=== PATIENT | female | born 1950 | race Caucasian/White ===

== ENCOUNTER 2019-05-29 15:14 | Inpatient (IN) | payer MEDICARE, OTHER ==
[~2019-05-29] VITALS: Ht 152.4 cm; Wt 56.2 kg
--- NOTE | 2019-05-29 15:15 | NUR ---
PT BIBRA FROM HOME C/O WITNESSED SYNCOPAL EPISODE, PT AAOX3, NOT IN RESPIRATORY DISTRESS, HOOKED TO MONITOR, KEPT RESTED AND COMFORTABLE, WILL CONTINUE TO MONITOR.
--- NOTE | 2019-05-29 15:20 | NUR ---
AT BEDSIDE FOR EVAL.
[2019-05-29] MEDS ORDERED: IV NS 0.9% 1,000 ML BAG IV ONE ×4 (15:30→18:00)
[2019-05-29] MEDS ORDERED: MORPHINE SULFATE INJ 2 MG/ML DISP.SYRIN IV ONE (15:30)
[2019-05-29] MEDS ORDERED: ONDANSETRON HCL/PF 4 MG/2 ML VIAL IVP ONE (15:30)
[2019-05-29] MEDS ORDERED: ONDANSETRON HCL/PF 4 MG/2 ML VIAL ONE (15:33)
--- NOTE | 2019-05-29 15:44 | NUR ---
BLOOD DRAWN AND SENT TO LAB.
[2019-05-29 15:58] LABS: BASOPHILS % (AUTO) 0.1 % (0.0-2.0); HEMATOCRIT 50 % (33-45); HEMOGLOBIN 16.5 g/dL (11.5-14.8); LYMPHOCYTES # (AUTO) 0.7 /CMM (0.8-4.8); LYMPHOCYTES % (AUTO) 2.8 % (20.0-44.0); MEAN CORPUSCULAR HGB CONC 33 g/dl (31.0-36.0); MEAN CORPUSCULAR VOLUME 95 fL (82-100); MONOCYTES # (AUTO) 1.9 /CMM (0.1-1.30); MONOCYTES % (AUTO) 8.4 % (2.0-12.0); NEUTROPHILS # (AUTO) 20.4 /CMM (1.8-8.9); NEUTROPHILS % (AUTO) 88.7 % (43.0-81.0); PLATELET COUNT (AUTO) 235 /CMM (150-450); RED BLOOD CELL COUNT(AUTO) 5.29 MIL/uL (4.0-5.2)
--- NOTE | 2019-05-29 16:16 | NUR ---
wheeled patient to ct scan
--- NOTE | 2019-05-29 16:16 | NUR ---
URINE COLLECTED AND SENT TO LAB
--- NOTE | 2019-05-29 16:16 | NUR ---
PATIENT GIVEN BED BATH
--- NOTE | 2019-05-29 16:16 | NUR ---
PT TAKEN TO CT
[2019-05-29] MEDS ORDERED: ATEN25TA PO (16:22)
[2019-05-29] MEDS ORDERED: IPRA42SP BNOSTRILS (16:22)
[2019-05-29] MEDS ORDERED: RANI150T8 PO (16:22)
[2019-05-29] MEDS ORDERED: LUBI24CA5 PO (16:22)
[2019-05-29] MEDS ORDERED: SUMA100T16 PO (16:22)
[2019-05-29] MEDS ORDERED: IMIP10TA PO (16:22)
[2019-05-29] MEDS ORDERED: MYRBETRIQ PO (16:22)
[2019-05-29] MEDS ORDERED: NAPR-1009 PO (16:22)
[2019-05-29] MEDS ORDERED: ROSU40TA23 PO (16:22)
[2019-05-29] MEDS ORDERED: LEVO75TA7 PO (16:22)
[2019-05-29] MEDS ORDERED: ESTR1TAB28 PO (16:22)
[2019-05-29] MEDS ORDERED: FESO4TAB PO (16:22)
[2019-05-29] MEDS ORDERED: ONDA-97 PO (16:22)
[2019-05-29 16:24] LABS: APPEARANCE,URINE Slightly Cloudy (CLEAR); BILIRUBIN,URINE SMALL (NEGATIVE); BLOOD, URINE Negative Ery/uL (NEGATIVE); COLOR,URINE Amber (YELLOW); KETONES,URINE 15 (NEGATIVE); LEUKOCYTE ESTERASE ,URINE Negative (NEGATIVE); NITRITE, URINE Negative (NEGATIVE); PROTEIN,URINE Negative (NEGATIVE); UGLUCOSE Negative (NEGATIVE)
[2019-05-29] MEDS ORDERED: BETA30LO2 TD (16:27)
[2019-05-29] MEDS ORDERED: PIPERACILLIN /TAZOBACTAM 3.375 G in IV D5W 50 ML IV ONE (16:30)
[2019-05-29 16:40] LABS: BACTERIA,URINE Moderate /HPF (None Seen); RBC,URINE 0-2 /HPF (0-2); SQUAMOUS EPITHELIAL CELL,UR Many /HPF (None Seen); WBC,URINE 0-2 /HPF (0-3)
[2019-05-29 17:15] LABS: BAND % (MANUAL) 23 % (0.0-5.0); LYMPHOCYTES % (MANUAL) 8 % (16-48); NEUTROPHILS % (MANUAL) 69 (42-76)
--- NOTE | 2019-05-29 17:16 | NUR ---
CALLED [facility], SARAHD PÉREZ
[2019-05-29 17:25] LABS: ALBUMIN 2.6 g/dL (3.4-5.0); BILIRUBIN,DIRECT 0.2 mg/dL (0.0-0.2); BILIRUBIN,TOTAL 0.8 mg/dL (0.2-1.0); CALCIUM, SERUM 10.1 mg/dL (8.5-10.1); CREATININE 1.4 mg/dL (0.6-1.3); POTASSIUM 3.3 mmol/L (3.5-5.1); TOTAL PROTEIN, SERUM 5.9 g/dL (6.4-8.2)
[2019-05-29] MEDS ORDERED: POTASSIUM CL. PREMIX PERIPHER. 200 ML ONE (17:33)
[2019-05-29] MEDS: POTASSIUM CL. PREMIX PERIPHER. 50 ML IV SCH ×4 (17:38→21:36)
--- NOTE | 2019-05-29 17:45 | NUR ---
REPORT GIVEN TO CLARISSA BIRMINGHAM FOR AN, WITH ONGOING IVF AND POTASSIUM.
[2019-05-29] MEDS ORDERED: PIPERACILLIN /TAZOBACTAM 4.5 G in IV D5W 100 ML IV SCH (18:00)
[2019-05-29] MEDS ORDERED: ONDANSETRON HCL/PF 4 MG/2 ML VIAL IVP PRN (18:00)
--- NOTE | 2019-05-29 18:27 | NUR ---
AT BEDSIDE FOR EVAL.
[2019-05-29 20:00] VITALS: BP 127/74
[2019-05-29] MEDS: MORPHINE SULFATE INJ 2 MG/ML DISP.SYRIN IV PRN (20:12)
--- NOTE | 2019-05-29 20:22 | NUR ---
CENTRIFUGE SEPARATOR OPERATOR NOTES RECEIVED PATIENT AWAKE IN BED WITH NO DISTRESS NOTED. CALL LIGHT WITHIN REACH. WITH C/O OF 10/10 RIGHT RIB AND HEAD PAIN, PRN MORPHINE GIVEN, WILL CONTINUE TO MONITOR FOR EFFECTIVENESS. PERIPHERAL LINE INTACT AND PATENT. ENCOURAGED USE OF CALL LIGHT FOR ASSISTANCE AND VERBALIZED GOOD UNDERSTANDING. BED IN LOW LOCK SETTING WITH BED ALARM ON AND FUNCTIONING PROPERLY. ROOM FREE OF CLUTTER AND BELONGINGS KEPT NEAR BEDSIDE. WILL CONTINUE TO MONITOR.
[2019-05-29 22:23] LABS: ALBUMIN 2.7 g/dL (3.4-5.0); BILIRUBIN,DIRECT 0.4 mg/dL (0.0-0.2); BILIRUBIN,TOTAL 1.2 mg/dL (0.2-1.0); CALCIUM, SERUM 8.9 mg/dL (8.5-10.1); CREATININE 1.2 mg/dL (0.6-1.3); POTASSIUM 4.3 mmol/L (3.5-5.1)
[2019-05-29] MEDS: PIPERACILLIN /TAZOBACTAM 3.375 G in IV D5W 100 ML IV SCH ×2 (22:32→23:37)
[2019-05-29] MEDS: IV NS 0.9% 1,000 ML IV PRN (23:37)
[2019-05-30] VITALS: BP 120/64
[2019-05-30] MEDS: MORPHINE SULFATE INJ 2 MG/ML DISP.SYRIN IV PRN ×3 (00:12→20:49)
[2019-05-30 06:25] LABS: BASOPHILS % (AUTO) 0.1 % (0.0-2.0); HEMATOCRIT 39 % (33-45); HEMOGLOBIN 12.8 g/dL (11.5-14.8); LYMPHOCYTES # (AUTO) 1.7 /CMM (0.8-4.8); LYMPHOCYTES % (AUTO) 8.2 % (20.0-44.0); MEAN CORPUSCULAR HGB CONC 33 g/dl (31.0-36.0); MEAN CORPUSCULAR VOLUME 95 fL (82-100); MONOCYTES # (AUTO) 1.8 /CMM (0.1-1.30); MONOCYTES % (AUTO) 8.4 % (2.0-12.0); NEUTROPHILS # (AUTO) 17.3 /CMM (1.8-8.9); NEUTROPHILS % (AUTO) 83.3 % (43.0-81.0); PLATELET COUNT (AUTO) 144 /CMM (150-450); RED BLOOD CELL COUNT(AUTO) 4.08 MIL/uL (4.0-5.2); WHITE BLOOD COUNT (AUTO) 20.8 K/uL (4.3-11.0)
[2019-05-30 06:40] LABS: ALBUMIN 2.3 g/dL (3.4-5.0); BILIRUBIN,TOTAL 1.1 mg/dL (0.2-1.0); CALCIUM, SERUM 8.3 mg/dL (8.5-10.1); POTASSIUM 4.8 mmol/L (3.5-5.1); TOTAL PROTEIN, SERUM 5.4 g/dL (6.4-8.2)
--- NOTE | 2019-05-30 06:46 | NUR ---
SOIL BIOLOGY TEACHER NOTES PATIENT ASLEEP IN BED WITH NO DISTRESS NOTED. CALL LIGHT WITHIN REACH. NO FURTHER C/O PAIN OR DISCOMFORT. ALL DUE MEDS GIVEN ORDERED WITH NO ASE NOTED. PERIPHERAL LINE INTACT AND PATENT. BED IN LOW LOCK SETTING. BED ALARM ON AND FUNCTIONING PROPERLY. ALL BELONGINGS KEPT NEAR BEDSIDE. WILL ENDORSE TO ONCOMING SHIFT. Addendum: 05/30/19 at 0650 by YASMANY GARRIDO RN CONTACT ISOLATION OBSERVED AND MAINTAINED AT ALL TIMES
[2019-05-30 08:00] VITALS: BP 115/62
[2019-05-30] MEDS ORDERED: SUMATRIPTAN SUCCINATE 100 MG TABLET PO PRN (08:30)
--- NOTE | 2019-05-30 08:40 | NUR ---
MS RN NOTES-- PT SEEN AND EXAMINED BY DR. ORTEZ W/ ORDERS FOR XRAY TO RIGHT RIBS AND LIDOCAINE PATCH PER PT REQUEST D/T RIGHT SIDED PAIN. ORDERS READ BACK AND VERIFIED, NOTED AND CARRIED OUT.
[2019-05-30] MEDS: IPRATROPIUM BROMIDE 0.06% 15 ML NASPR NS SCH ×2 (09:00→16:49)
[2019-05-30] MEDS ORDERED: PANTOPRAZOLE 40 MG VIAL IV SCH (09:00)
[2019-05-30] MEDS: ATORVASTATIN 40 MG TABLET PO SCH (09:32)
[2019-05-30] MEDS: ATENOLOL 25 MG TABLET PO SCH (09:33)
[2019-05-30] MEDS: LIDOCAINE 5% (PATCH) 1 EA PATCH TP SCH (09:33)
[2019-05-30] MEDS: LEVOTHYROXINE SODIUM 75 MCG TABLET PO SCH (09:34)
[2019-05-30] MEDS: ESTRADIOL 1 MG TABLET PO SCH (11:18)
--- NOTE | 2019-05-30 11:18 | NUR ---
MS RN NOTES-- SON TITI AND DTR IN LAW AT BEDSIDE. PER SON, TO GIVE PT ORGANIC FOOD. PER DIETARY, THEY DONT HAVE ORGANIC FOOD. SON TITI MADE AWARE THAT HE IS WELCOME TO BRING ORGANIC FOOD FOR PT JUST LONG IT COMPLIES WITH DIET ORDER, CLEAR LIQUIDS.
--- NOTE | 2019-05-30 11:51 | NUR ---
MS RN NOTES-- WAITING FOR PHARMACY TO BRING UP NASAL SPRAY. PT STATED SHE HAS HER OWN NASAL SPRAY IN HER BAG BUT NOT TOO MUCH. PER PT, ILL JUST USE MINE FOR NOW.
[2019-05-30] MEDS: PIPERACILLIN /TAZOBACTAM 3.375 G in IV D5W 100 ML IV SCH (13:38)
[2019-05-30 16:00] VITALS: BP 117/68
--- NOTE | 2019-05-30 17:36 | NUR ---
MS RN NOTES-- NOTIFIED ROSITA SOLER ID RE: XRAY TO RIGHT RIBS.
[2019-05-30] MEDS ORDERED: IMIPRAMINE 10 MG TABLET PO SCH (18:00)
--- NOTE | 2019-05-30 18:25 | NUR ---
MS RN END OF SHIFT SUMMARY PT IS A/O X4, AFEBRILE. RESPIRATIONS ARE EVEN AND UNLABORED, NOT IN ANY ACUTE DISTRESS NOTED. PT DENIES ANY SOB, N/V. PT WAS ABLE TO SIT AT THE EDGE OF BED, STAND AND PIVOT TO USE BSC. PT ABLE TO VOID, NO STOOL DURING SHIFT. STILL ON STOOL COLLECTION FOR CDIFF. LIDOCAINE PATCH TO RIGHT RIB CAGE, XR SHOWS COMMINUTED FX W/ MD AWARE. SON TITI AND DTR IN LAW AT BEDSIDE. SON TITI BROUGHT OWN FOOD FOR PT DIETARY DOES NOT HAVE ORGANIC FOODS. NEW PERIPHERAL TO RFA G22, KEPT CLEAN AND DRY. PT TOLERATED WELL. IV FLUIDS RUNNING AT 125ML/HR. INSTRUCTED PT TO USE CALL LIGHT WHEN ASSISTANCE IS NEEDED, CALL LIGHT IS LEFT WITHIN REACH. WILL CONTINUE TO MONITOR AND ENDORSE TO YARDER FOR CONTINUITY OF CARE.
--- NOTE | 2019-05-30 19:05 | NUR ---
MS RN NOTE RECEIVED PT IN STABLE CONDITION A/O X4, CURRENTLY ON THE PHONE. NO SIGNS OF SOB OR DISTRESS, NO C/O PAIN OR N/V. IV IN RFA #[address] WITH IV FLUIDS INFUSING. ALL CURRENT NEEDS ATTENDED TO. BED LOW, LOCKED, UPPER RAILS UP , AND CALL LIGHT WITHIN REACH. WILL CONT. TO MONITOR.
[2019-05-30 20:00] VITALS: BP 146/92
[2019-05-30] MEDS: METRONIDAZOLE 500 MG TABLET PO SCH (20:08)
[2019-05-30] MEDS: CEFTRIAXONE 1 G in IV D5W 50 ML IV SCH (20:08)
--- NOTE | 2019-05-30 21:58 | NUR ---
MS RN NOTE ATTEMPTED TO TAKE WEEKLY PHOTO DOCUMENTATION OF PT BACK. PT REFUSING TO TURN TO SIDE, STATING IT HURTS TOO MUCH. RISKS AND BENEFITS MADE AWARE. WILL CONT. TO MONITOR.
[2019-05-30] MEDS: IV NS 0.9% 1,000 ML IV PRN (22:02)
[2019-05-31] MEDS: METRONIDAZOLE 500 MG TABLET PO SCH ×3 (05:02→21:34)
[2019-05-31] MEDS: IV NS 0.9% 1,000 ML IV PRN ×2 (06:09→17:05)
--- NOTE | 2019-05-31 06:22 | NUR ---
MS RN NOTE PT REMAINS IN STABLE CONDITION A/O X4, CURRENTLY RESTING IN BED. NO SIGNS OF SOB OR DISTRESS, NO C/O PAIN OR N/V. IV IN RFA #[address] WITH IV FLUIDS INFUSING, TOLERATING WELL. ALL CURRENT NEEDS ATTENDED TO. BED LOW, LOCKED, UPPER RAILS UP , AND CALL LIGHT WITHIN REACH. WILL CONT. TO MONITOR AND ENDORSE TO NEXT SHIFT FOR AN.
[2019-05-31 07:00] LABS: BASOPHILS % (AUTO) 0.2 % (0.0-2.0); EOSINOPHILS % (AUTO) 0.2 % (0.0-6.0); HEMATOCRIT 34 % (33-45); HEMOGLOBIN 11.5 g/dL (11.5-14.8); LYMPHOCYTES # (AUTO) 1.7 /CMM (0.8-4.8); LYMPHOCYTES % (AUTO) 12.3 % (20.0-44.0); MEAN CORPUSCULAR HGB CONC 34 g/dl (31.0-36.0); MEAN CORPUSCULAR VOLUME 94 fL (82-100); MONOCYTES # (AUTO) 0.8 /CMM (0.1-1.30); MONOCYTES % (AUTO) 5.9 % (2.0-12.0); NEUTROPHILS # (AUTO) 11.6 /CMM (1.8-8.9); NEUTROPHILS % (AUTO) 81.4 % (43.0-81.0); PLATELET COUNT (AUTO) 133 /CMM (150-450); RED BLOOD CELL COUNT(AUTO) 3.66 MIL/uL (4.0-5.2); WHITE BLOOD COUNT (AUTO) 14.2 K/uL (4.3-11.0)
[2019-05-31 07:17] LABS: ALBUMIN 2.2 g/dL (3.4-5.0); BILIRUBIN,DIRECT 0.2 mg/dL (0.0-0.2); BILIRUBIN,TOTAL 0.7 mg/dL (0.2-1.0); TOTAL PROTEIN, SERUM 5.5 g/dL (6.4-8.2)
--- NOTE | 2019-05-31 07:38 | NUR ---
MS RN NOTES PATIENT RECEIVED RESTING INSIDE ROOM. AWAKE, ALERT AND ORIENTED X 4. NO ACUTE DISTRESS. PATIENT DENIES ANY PAIN OR DISCOMFORT AT THIS TIME. AWAITING BM FOR STOOL COLLECTION TO R/O C-DIFF PER SHIFT CHANGE REPORT. PATIENT VERBALIZED SHE HAS NOT HAD ANY BM SINCE ARRIVING AT THE HOSPITAL. WILL CONTINUE TO MONITOR. BED LOCKED AND IN LOW POSITION. BILATERAL UPPER SIDE RAILS UP AND LOCKED. CALL LIGHT WITHIN EASY REACH
[2019-05-31 08:00] VITALS: BP 140/69
[2019-05-31] MEDS: ATENOLOL 25 MG TABLET PO SCH (08:34)
[2019-05-31] MEDS: ESTRADIOL 1 MG TABLET PO SCH (08:34)
[2019-05-31] MEDS: LEVOTHYROXINE SODIUM 75 MCG TABLET PO SCH (08:34)
[2019-05-31] MEDS: ATORVASTATIN 40 MG TABLET PO SCH (08:34)
[2019-05-31] MEDS: IPRATROPIUM BROMIDE 0.06% 15 ML NASPR NS SCH ×2 (08:35→17:07)
[2019-05-31] MEDS: LIDOCAINE 5% (PATCH) 1 EA PATCH TP SCH (08:35)
--- NOTE | 2019-05-31 09:54 | NUR ---
WOUND CARE CONSULT: PT PRESENTS WITH INTACT SKIN AND SOME DISCOLORATION TO KNEES, PRESENT ON ADMISSION. RECOMMENDATIONS MADE FOR SKIN PROTECTION. PT IS INDEPENDENT WITH BED MOBILITY. WILL SEE PRN.
[2019-05-31] MEDS ORDERED: Z GUARD REMEDY 2 OZ OINT TP PRN (10:00)
[2019-05-31] MEDS: Z GUARD REMEDY 2 OZ OINT TP SCH (10:26)
[2019-05-31 16:00] VITALS: BP 138/70
--- NOTE | 2019-05-31 18:57 | NUR ---
MS RN NOTES PATIENT RESTING INSIDE ROOM. AWAKE, ALERT AND ORIENTED, NO ACUTE DISTRESS. PATIENT KEPT CLEAN, DRY AND COMFORTABLE. SAFETY PRECAUTIONS IN PLACE. WILL ENDORSE TO INCOMING SHIFT FOR AN. BED LOCKED AND IN LOW POSITION. BILATERAL UPPER SIDE RAILS UP AND LOCKED. CALL LIGHT WITHIN EASY REACH
--- NOTE | 2019-05-31 19:05 | NUR ---
MS RN NOTES RECEIVED PT IN BED AWAKE AND ABLE TO MAKE NEEDS KNOWN. PT A/O X3. RESPIRATIONS EVEN AND UNLABORED WITH NO S/S OF ACUTE DISTRESS OR SOB NOTED. NO COMPLAINTS OF PAIN AT THIS TIME. SAFETY MEASURES IN PLACE WITH BED IN LOWEST LOCKED POSITION WITH SIDE RAILS UP X2. CALL LIGHT WITHIN REACH. WILL CONTINUE TO MONITOR.
[2019-05-31 20:16] VITALS: BP 153/76
[2019-05-31] MEDS: CEFTRIAXONE 1 G in IV D5W 50 ML IV SCH (20:46)
[2019-06-01] MEDS: IV NS 0.9% 1,000 ML IV PRN (02:19)
[2019-06-01] MEDS: METRONIDAZOLE 500 MG TABLET PO SCH (04:04)
--- NOTE | 2019-06-01 07:28 | NUR ---
MS RN NOTES PT IN BED AWAKE AND ABLE TO MAKE NEEDS KNOWN. PT A/O X3. RESPIRATIONS EVEN AND UNLABORED WITH NO S/S OF ACUTE DISTRESS OR SOB NOTED THROUGHOUT SHIFT. NO COMPLAINTS OF PAIN AT THIS TIME. SAFETY MEASURES IN PLACE WITH BED IN LOWEST LOCKED POSITION WITH SIDE RAILS UP X2. PT KEPT CLEAN, DRY, AND COMFORTABLE. CALL LIGHT WITHIN REACH. WILL CONTINUE TO MONITOR. Addendum: 06/01/19 at 6153 by PHILOMENA ANDERS RN WILL ENDORSE TO ONCOMING NURSE FOR [facility].
--- NOTE | 2019-06-01 07:49 | NUR ---
MS RN NOTES PATIENT RECEIVED RESTING INSIDE ROOM. AWAKE, ALERT AND ORIENTED X 4. VERBALLY RESPONSIVE AND RESPONDS TO VERBAL AND TACTILE STIMULI. BREATHING EVEN AND UNLABORED. NO ACUTE DISTRESS NOTED AT THIS TIME. PATIENT CALM AND RELAXED. IVF INFUSING ORDERED. SAFETY PRECAUTIONS IN PLACE. WILL CONTINUE TO MONITOR. BED LOCKED AND IN LOW POSITION, BILATERAL UPPER SIDE RAILS UP AND LOCKED. CALL LIGHT WITHIN EASY REACH
[2019-06-01 08:00] VITALS: BP 149/76
[2019-06-01] MEDS: LIDOCAINE 5% (PATCH) 1 EA PATCH TP SCH (08:51)
[2019-06-01] MEDS: Z GUARD REMEDY 2 OZ OINT TP SCH (08:51)
[2019-06-01 08:52] VITALS: BP 149/85
[2019-06-01] MEDS: LEVOTHYROXINE SODIUM 75 MCG TABLET PO SCH (08:52)
[2019-06-01] MEDS: ESTRADIOL 1 MG TABLET PO SCH (08:52)
[2019-06-01] MEDS: ATENOLOL 25 MG TABLET PO SCH (08:52)
[2019-06-01] MEDS: ATORVASTATIN 40 MG TABLET PO SCH (08:52)
[2019-06-01] MEDS: IPRATROPIUM BROMIDE 0.06% 15 ML NASPR NS SCH (08:53)
[2019-06-01] MEDS ORDERED: MYRBETRIQ 50 MG PO SCH (09:00)
--- NOTE | 2019-06-01 10:30 | NUR ---
MS RN NOTES PATIENT SEEN AND EXAMINED BY DR RAMIREZ. WITH NEW ORDERS FOR DISCHARGE HOME, ALSO TO PROVIDE WITH FWW. PATIENT MADE AWARE AND VERBALIZED UNDERSTANDING. SON FLORECITA MADE AWARE, WILL COME AND PICK PATIENT UP.
--- NOTE | 2019-06-01 10:53 | NUR ---
MS RN NOTES PATIENT FOR DISCHARGE TODAY. DISCHARGE INSTRUCTIONS AND EDUCATION PROVIDED TO PATIENT AND VERBALIZED UNDERSTANDING. ALL BELONGINGS COMPLETE ON DISCHARGE, NO REPORT OF MISSING INVENTORY. IV REMOVED, TIP INTACT, PRESSURE DRESSING PLACED ON SITE. NO NEW SKIN BREAKDOWN ON DISCHARGE. PATIENT PROVIDED WITH FWW. ACCOMPANIED BY NURSING STAFF VIA WHEELCHAIR TO PARKING LOT. LEFT HOSPITAL PREMISES VIA PRIVATE CAR. MD AWARE OF DISCHARGE
== END 2019-06-01 11:15 | disposition home or self-care (01) | DRG 871 ==
LOC: ER 15:15 → TELE 18:13 → MED 05-30 09:17
PROVIDERS: ADMIT Internal Medicine
DX: A41.9 Sepsis, unspecified organism (principal); K72.00 Acute and subacute hepatic failure without coma; N17.0 Acute kidney failure with tubular necrosis; S22.41XA Multiple fractures of ribs, right side, initial encounter for closed fracture; E87.1 Hypo-osmolality and hyponatremia; K51.00 Ulcerative (chronic) pancolitis without complications; E87.0 Hyperosmolality and hypernatremia; E78.5 Hyperlipidemia, unspecified; E03.9 Hypothyroidism, unspecified; K76.0 Fatty (change of) liver, not elsewhere classified; K59.00 Constipation, unspecified; J44.9 Chronic obstructive pulmonary disease, unspecified; I70.8 Atherosclerosis of other arteries; I10 Essential (primary) hypertension; E86.1 Hypovolemia; Z90.49 Acquired absence of other specified parts of digestive tract; Z79.899 Other long term (current) drug therapy; E86.0 Dehydration; E87.6 Hypokalemia; I34.1 Nonrheumatic mitral (valve) prolapse; Z88.5 Allergy status to narcotic agent; Z88.8 Allergy status to other drugs, medicaments and biological substances; Z91.040 Latex allergy status; M41.9 Scoliosis, unspecified; X58.XXXA Exposure to other specified factors, initial encounter; Y92.9 Unspecified place or not applicable
CPT/HCPCS: 36415; 70450-TC; 71045-TC; 71100-TC; 76700-TC; 80048-TC; 80053-TC; 80076-TC; 81000-TC; 82962-TC; 83605-TC; 83690-TC; 85025-TC; 87040-TC; 87081-TC; 87086-TC; 93307-TC; 97116-TC; 97530-TC; C9113; G0378; J0696; J2270; J2405; J2543; J3480; J7030; J7060

== ENCOUNTER 2022-04-27 18:12 | Emergency (ER) | payer MEDICARE, OTHER ==
[~2022-04-27] VITALS: Ht 152.4 cm; Wt 51.3 kg
[~2022-04-27 18:12] MED LIST: ATEN25TA PO; BETA30LO2 TD; ESTR1TAB28 PO; FESO4TAB PO; IMIP10TA PO; IPRA42SP BNOSTRILS; LEVO75TA7 PO; LUBI24CA5 PO; MYRBETRIQ PO; NAPR-1009 PO; ONDA-97 PO; RANI150T8 PO; ROSU40TA23 PO; SUMA100T16 PO
--- NOTE | 2022-04-27 18:17 | NUR ---
BIB RA 878 FROM HOME,C/O RIGHT FOOT PAIN,GLF GETTING OUT OF BED WITH LIGHTS OFFF, MULTIPLE BRUISES AND ABRASIONS FROM PREVIOUS FALLS PRESENT.
--- NOTE | 2022-04-27 19:26 | NUR ---
XRAY DONE AT BEDSIDE
--- NOTE | 2022-04-27 22:14 | NUR ---
[facility] ETA 70-90 MINUTES
--- NOTE | 2022-04-27 22:21 | NUR ---
PT FOR DISCHARGE AWAITING FOR TRANSPORT.
--- NOTE | 2022-04-27 23:16 | NUR ---
REPORT GIVEN TO NATALIYA GONSALVES. PATIENT WILL BE TRANSPORTED BACK HOME
[2022-04-27 23:25] VITALS: BP 118/77
--- NOTE | 2022-04-27 23:25 | NUR ---
Patient discharged to home via ambulance in stable condition. Written and verbal after care instructions given. Patient verbalizes understanding of instruction.
[2022-04-28] MEDS ORDERED: OLOP2.5D12 EACHEYE (18:11)
== END 2022-04-27 23:25 | disposition home or self-care (01) ==
LOC: ER 18:17
DX: S92.331A Displaced fracture of third metatarsal bone, right foot, initial encounter for closed fracture (principal); I10 Essential (primary) hypertension; Z88.8 Allergy status to other drugs, medicaments and biological substances; Z60.2 Problems related to living alone; Z79.899 Other long term (current) drug therapy; X50.1XXA Overexertion from prolonged static or awkward postures, initial encounter; Y93.89 Activity, other specified; Y92.89 Other specified places as the place of occurrence of the external cause; Y99.8 Other external cause status
CPT/HCPCS: 73610-TC; 73630-TC

== ENCOUNTER 2022-04-28 15:49 | Inpatient (IN) | payer MEDICARE, OTHER ==
[~2022-04-28] VITALS: Ht 152.4 cm; Wt 54.0 kg
[2022-04-28] MEDS ORDERED: ACETAMINOPHEN ES 500 MG TABLET ONE (16:59)
[2022-04-28] MEDS ORDERED: ACETAMINOPHEN ES 500 MG TABLET PO ONE (17:00)
[2022-04-28] MEDS ORDERED: IV NS 0.9% 1,000 ML IV ONE (17:00)
[2022-04-28 17:04] LABS: BASOPHILS % (AUTO) 0.6 % (0.0-2.0); EOSINOPHILS % (AUTO) 0.4 % (0.0-6.0); HEMATOCRIT 36 % (33-45); HEMOGLOBIN 11.9 g/dL (11.5-14.8); LYMPHOCYTES # (AUTO) 1.7 K/uL (0.8-4.8); LYMPHOCYTES % (AUTO) 25.5 % (20.0-44.0); MEAN CORPUSCULAR HGB CONC 33 g/dl (31.0-36.0); MEAN CORPUSCULAR VOLUME 92 fL (82-100); MONOCYTES # (AUTO) 0.7 K/uL (0.1-1.30); NEUTROPHILS # (AUTO) 4.3 K/uL (1.8-8.9); NEUTROPHILS % (AUTO) 63.5 % (43.0-81.0); PLATELET COUNT (AUTO) 204 K/uL (150-450); RED BLOOD CELL COUNT(AUTO) 3.93 MIL/uL (4.0-5.2); WHITE BLOOD COUNT (AUTO) 6.8 K/uL (4.3-11.0)
[2022-04-28 17:23] LABS: CALCIUM, SERUM 9.1 mg/dL (8.5-10.1); CREATININE 0.9 mg/dL (0.6-1.3); POTASSIUM 3.3 mmol/L (3.5-5.1)
[2022-04-28 17:29] LABS: ALBUMIN 3.3 g/dL (3.4-5.0); BILIRUBIN,TOTAL 1.1 mg/dL (0.2-1.0); TOTAL PROTEIN, SERUM 7.6 g/dL (6.4-8.2)
--- NOTE | 2022-04-28 17:48 | NUR ---
R AC # 20 G RIP ESTABLISHED
[2022-04-28] MEDS ORDERED: OLOP2.5D12 EACHEYE (18:11)
[2022-04-28] MEDS ORDERED: POTASSIUM CHLORIDE 20 MEQ TAB.PRT.SR PO ONE ×2 (18:30→18:48)
--- NOTE | 2022-04-28 18:58 | NUR ---
[facility] CALLED FOR TRANSPORT ETA 30 MINS.
--- NOTE | 2022-04-28 20:02 | NUR ---
covid swab collected
[2022-04-28] MEDS ORDERED: TEMAZEPAM 15 MG CAPSULE PO PRN (22:00)
[2022-04-28] MEDS ORDERED: IBUPROFEN 400 MG TABLET PO PRN (22:00)
[2022-04-28] MEDS ORDERED: Z GUARD REMEDY 4 OZ OINT TP PRN (22:00)
[2022-04-28] MEDS ORDERED: ONDANSETRON HCL/PF 4 MG/2 ML VIAL IVP PRN (22:00)
[2022-04-28] MEDS ORDERED: MAG HYDROX/AL HYDROX/SIMETH 30 ML UDC PO PRN (22:00)
[2022-04-28] MEDS ORDERED: ACETAMINOPHEN 325 MG TABLET PO PRN (22:00)
[2022-04-28] MEDS ORDERED: MAGNESIUM HYDROXIDE 30 ML UDC PO PRN (22:00)
[2022-04-28 22:18] LABS: BILIRUBIN,URINE NEGATIVE (NEGATIVE); COLOR,URINE YELLOW (YELLOW); LEUKOCYTE ESTERASE ,URINE NEGATIVE (NEGATIVE); NITRITE, URINE NEGATIVE (NEGATIVE); PROTEIN,URINE NEGATIVE (NEGATIVE); UGLUCOSE NEGATIVE (NEGATIVE); UROBILINOGEN,URINE 0.2 EU/dL (0.2)
--- NOTE | 2022-04-28 23:25 | NUR ---
BED 117-2
--- NOTE | 2022-04-29 00:02 | NUR ---
REPORT GIVEN TO GELA NURSE
--- NOTE | 2022-04-29 00:31 | NUR ---
PATIENT TRANSFERRED, NO ACUTE DISTRESS NOTED, VSS.
--- NOTE | 2022-04-29 01:00 | NUR ---
RECEIVED PATIENT FROM ER VIA GURNEY ACCOMPANIED BY RN, AO X 3, SATURATION AT 99% ON RA, HR IS 88. IV LINE AT RAC 20G PATENT AND FLUSHING WELL, SALINE LOCKED. COMPREHENSIVE ASSESSMENT DONE, NOTED WOUND ON JOSE KNEE AND BRUISE ON JOSE HIP, WOUND ON RT ELBOW. APPLIED FOAM DRESSING. REFERRED FOR WOUND CONSULT. NOTED RT FOOT FX. SAFETY MEASURES IN PLACE, BED IS LOCKED AND AT LOWEST POSITION, BED ALARM ON, CALL LIGHT WITHIN REACH OF PATIENT. WILL CONT TO MONITOR AND CARRY OUT MD ORDERS.
[2022-04-29 04:00] VITALS: BP 130/80
--- NOTE | 2022-04-29 06:54 | NUR ---
PT AWAKE IN BED. RESTING COMFORTABLY. A/O X 3, SATURATION AT 99% ON RA, HR IS 88. IV LINE AT RAC 20G PATENT AND FLUSHING WELL, SALINE LOCKED. SAFETY MEASURES MAINTAINED. BED IS LOCKED AND AT LOWEST POSITION, BED ALARM ON, CALL LIGHT WITHIN REACH OF PATIENT. WILL ENDORSE TO NEXT NURSE ON DUTY FOR CONTINUITY OF CARE.
[2022-04-29 07:31] LABS: CALCIUM, SERUM 8.7 mg/dL (8.5-10.1); CREATININE 0.7 mg/dL (0.6-1.3); MAGNESIUM 2.3 mg/dL (1.8-2.4); PHOSPHORUS 2.9 mg/dL (2.5-4.9); POTASSIUM 3.5 mmol/L (3.5-5.1)
[2022-04-29 07:32] LABS: BASOPHILS % (AUTO) 0.4 % (0.0-2.0); HEMATOCRIT 39 % (33-45); HEMOGLOBIN 12.7 g/dL (11.5-14.8); LYMPHOCYTES # (AUTO) 2.3 K/uL (0.8-4.8); LYMPHOCYTES % (AUTO) 35.3 % (20.0-44.0); MEAN CORPUSCULAR HGB CONC 32 g/dl (31.0-36.0); MEAN CORPUSCULAR VOLUME 93 fL (82-100); MONOCYTES # (AUTO) 0.7 K/uL (0.1-1.30); MONOCYTES % (AUTO) 10.6 % (2.0-12.0); NEUTROPHILS # (AUTO) 3.5 K/uL (1.8-8.9); NEUTROPHILS % (AUTO) 52.7 % (43.0-81.0); PLATELET COUNT (AUTO) 193 K/uL (150-450); RED BLOOD CELL COUNT(AUTO) 4.22 MIL/uL (4.0-5.2); WHITE BLOOD COUNT (AUTO) 6.6 K/uL (4.3-11.0)
[2022-04-29 07:41] LABS: THYROID STIMULATING HORMONE 45.455 uIU/mL (0.358-3.74)
[2022-04-29] MEDS: PANTOPRAZOLE 40 MG TABLET.DR PO SCH (09:17)
[2022-04-29] MEDS ORDERED: LEVOTHYROXINE SODIUM 100 MCG TABLET PO SCH (11:00)
[2022-04-29 12:00] VITALS: BP 130/80
--- NOTE | 2022-04-29 14:20 | NUR ---
School Librarian Consult SW received a consult request for multiple falls in the home. Pt. is a 72 y.o. white female who was admitted for weakness. SW met with pt. at bedside. Pt. appears disheveled and is alert and oriented x3 and was cooperative throughout assessment. Pt. made consistent eye contact, had a labile mood, and had a congruent affect. Per pt. report they are not ambulatory and requires assistance to walk and a wheelchair. Pt. reported she is receiving financial assistance ([employer], and [employer]). Pt. reported no hx of substance abuse. Pt. reported a hx of depression dx and no visual or auditory hallucinations. SW assessed for suicidal and homicidal ideation in which pt. reported having SI when her mother earlier this year with no plan. Pt. stated she was not currently having SI or HI. Pt. stated she was living in her home on [address] [place] [address]. SW inquired re family members and or person of contacts. Pt. was provided her sons information, Chilango Rodriguez ([address] [place] [address]. [phone]). DC plan: When asked about pt.s plans after being discharged, pt. reported she was going to [facility]. NITHIN offered pt. alf placement in which pt. was not agreeable. NITHIN provided pt. with senior resources guide and mental health resources in which pt. accepted them. SW discussed discharge plan with nurse and she was agreeable. -Senior Resource Guide- ABUSE PREVENTION: Elder Abuse Hotline (20/01) Adult Protective Services Hotline Long-Term Care [facility] Region Area On Aging (Hotline) ADULT DAY HEALTH CARE CARE CENTERS: Private pay or Medi-berna funded adult day care [facility] , [facility] , [facility] , [facility] Adult Day Health Care , [facility] Adult [facility] Care , [facility] , [place] [facility] , [place] [facility] Adult Center , [place] ALZHEIMERS DISEASE/DEMENTIA: Alzheimers Association [facility] Chapter www.alz.org/[facility] Department of Aging www.lacity.org Family Caregiver Rodessa www.caregiver.org [place] Caregiver Resources Center/Family Support www.[facility].org CANCER RESOURCES: [place] Cancer Society www.cancer.org Cancer Support Community www.CancerSupportVvsb.org: Cancer Care www.cancercare.org [facility] Cancer Support [place] www.[facility].org [facility] HEALTH ASSOCIATIONS: AARP www.aarp.org ALS Association (ask for Mechelle) www.als.org [place] Diabetes Association www.diabetes.org [place] Heart Association www.heart.org [place] Lung Association www.lungusa.org [place] Parkinson Disease Association www.apdaparkinson.org [place]er [place] , www.redcross.org Arthritis Foundation www.arthritis.org Crohns & Colitis Foundation of [place] www.ccfa.org/chapters/yamilet National Multiple Sclerosis Society www.nationalmssociety.org Myasthenia Gravis Foundation www.myasthenia-ca.org National Stroke Association www.stroke.org CONSERVATORSHIP & GUARDIANSHIP: AARP Jodi Mckeon Legal Services Center for Health Care Rights Eldercare Information and Referral Tool Filer Hand Foundation [facility]: [facility] Bar Referral Service [facility] Legal Services Office of the Public Guardian [place] EYESIGHT DISORDER RESOURCES: [place] Macular Degeneration Foundation [facility] www.[facility] behavioral health centertitcreighton.org GRIEF AND BEREAVEMENT RESOURCES: [facility] Place , [facility] THE GRADY Connection , [facility] For Blind Babies Bereavement Center , Elliott HEARING DISORDER RESOURCES: [place] Telephone Access Program Deaf and Disabled Telecommunications Program www.ddtp.[facility].ca.gov HearRx Hearing Centers ([place]) Better Hearing Systems , Elliott GLAD ([facility] Agency on Deafness) V/ TTY; Orthotics Prosthetics Assistant , [facility] Hearing [facility] -low income hearing aid assistance www.[facility] orlandofoundation.org [facility] [facility] , Missy HELP AT HOME CAREGIVER SUPPORT: In Home Support Services (Must have Medi-Berna to be eligible) *Ask for a list of agencies that provide services to assist with care in the home. Local Senior Centers also have listings of care providers. HOME SAFETY MODIFICATIONS AND EQUIPMENT: Senior centers have additional referrals. MD Housing and Community Investment Dept. Handyworker Program (low income) or Visit http://hcidla.[facility].org/zij-wcynae-lj for more information National Seating and Mobility and/or ; Forever Active www.foreveractivemed.SideTour Stay Home Safe www.Stayhomesafe.com LIFE ALERT RESPONSE SYSTEM: Proteon Therapeutics Services 567-868-4533 www. Madronish Therapeutics Life Alert 747-259-4579 www.CTIC [place] Life Station 432-985-2033 www.PricePandaation.SideTour Safe Return 787-406-1623 www.alz.or/safereturn Cell Phones for Seniors www.Taulia MEALS AND FOOD PROGRAMS: [place] Meals on Wheels [phone] [place] Meals on Wheels [phone] [facility] [phone] Leslie to the Homebound [phone] [place] to the Homebound [phone] [facility] to the Homebound [phone] [facility] to the Homebound [phone] [facility] [phone] [facility] [phone] ONE Generation [phone] [facility] [phone] [facility] [phone] Meals on Wheels [phone] For all ages: $6.85/ meal w side. Delivered M-F from 10 am-1pm. Application and payment is done over the phone. Frozen meals available for weekends. Emergency Food Coaldignity health [facility] [phone] [facility] School Librarian [phone] [facility] [phone] [facility]- Brown bag lunches [phone] [facility] [phone] MEAL/GROCERY DELIVERY PROGRAMS: Harleen Senior Gourmet Meals [phone]- [facility] [phone]- [facility] Magic Kitchen [phone] Moms Meals [phone] (ask [place] for Discount Select grocery stores may provide delivery. MEDICAL INSURANCE SUPPORT SERVICES: Center for Health Care Rights [phone] Health Insurance Counseling/Advocacy Programs (HICAP)-Must have Medicare. Offers counseling for Medi-Berna eligibility [phone] Department of Public School Librarian [phone] www.[facility].ca.gov Medicare [phone] www.socialsecurity.org Social Security [phone] SENIOR ACTIVITY PROGRAMS: *Contact a local senior center, adult school, recreation facility or community college for education, fitness, recreation, and social programs. Aquatic Therapy and Adapted Exercise programs through [facility] [phone] Encore at [facility] [phone] www.[facility]/encore U- Senior Friends [phone] [place] Senior Programs [phone] www.oasisnet.org Suddenly 65 www.wvnocujy33.com SENIOR CENTERS: [facility] [phone] [facility] [phone] [facility] [phone] [facility] [phone] [facility] [phone] [facility] [phone] [facility] [phone] [facility] [phone] One Generation, [facility] [phone] [facility] [phone] [facility] [phone] [facility] [phone] [facility] [phone] TRANSPORTATION: Local [facility] Centers may have applications for transportation programs and additional resources. ACCESS Services [phone] Transportation for seniors and disabled persons 7 days a week requiring 254 hr. advance reservation. Must apply and register for program to be eligible. CITY RIDE 234-763-1339 or [phone] Transportation for seniors and persons with ADA card/metro disabled card in the [facility]. M-F only. Must register for services. ONE GENERATION [phone] Serves 65 years + in conjunction with Gateway EDI ride program. Must be registered with both programs. A to B Transport [phone] Provides wheelchair/gurney van service. ([facility]) TRANSPORTATION CONTINUED: Adult Medical Transport [phone] Accepts [facility]na with prior authorization. City Wide Transportation [phone] Provides gurney service [facility] [phone] Gurney Transport. All Town Transportation [phone] wheelchair & gurney transport (must make appointment day off) D Transportation [phone] wheelchair & gurney transport (busy dial tone) [facility] Non-Emergency Transport [phone] wheelchair & gurney transport Independent Living Center [phone] (Short Term Transportation primarily for adults with disabilities on social security income. Nominal fee may apply and a reservation is required.) City Cab [phone] or [phone] [employer] [phone] [place] [address] Referral Services -[phone] For additional programs & services VETERANS RESOURCES: Submissions for Aid and Attendance should be done directly to Federal VA office located at: [address] [facility] [address] X110 National Caregiver Support Line [phone] [facility] Veterans Services Field Office [phone] [place] Department of Affairs [phone] Pension Information [phone] Medication Assistance Programs: Patient Advocate Foundation at to learn more on the programs and resources offered, apply for help. The patient advocate foundation provides assistance with paying for prescription drugs and helps cover the copay as part of the "Co-Pay Relief" program. If Pt. has Medicare Part D and needs financial assistance pt. may be qualified for the federal benefit program called Extra Help. The Medicare Rights [phone] let pt. know if he qualifies. NeedyMeds helps people of all ages, with and without insurance, locate Patient Assistance Programs, free/low cost clinics, state programs and offers a free NeedyMeds Drug Discount Card. For more information, patient may call their helpline at 161-695-0844. [facility] at [phone]. Call your State Medical Assistance (Medicaid) office for more information and to see if you qualify. You can also call 1-800-MEDICARE ( ) to get the phone number for your state's Medicaid office. TTY users can call . If you are interested in learning more or enrolling in the [employer] Dimitrit-Preferred Rx Plan (PDP), then you have a few different ways to do this. Consumers can visit the [employer] or Medicare websites, stop by your local Spac[employer] that have the [employer] informational kiosks, or by calling [employer] by phone at . Abbot prescription program, is J&J prescription assistance program. To learn more, or to apply, dial
--- NOTE | 2022-04-29 18:31 | NUR ---
REMOTE SENSING ADVISOR CLOSING NOTES: PATIENT IN BED, AWAKE, ALERT ORIENTED X 3. NO APPARENT DISTRESS THE ENTIRE SHIFT. LEFT LOWER EXTREMITY KEPT IMMOBILIZED. NO C/O PAIN OR DISCOMFORT AT THIS TIME. SALINE LOCK ON RIGHT AC INTACT, FLUSHES WELL, NO S/S INFILTRATION NOTED. CALL LIGHT WITHIN REACH. ALL NEEDS MET AND ANTICIPATED. WILL ENDORSE TO NEXT SHIFT NURSE.
--- NOTE | 2022-04-29 19:45 | NUR ---
MS RN OPENING NOTE RECEIVED PT IN BED AWAKE, ALERT AND ORIENTED X 3. HEAD OF BED ELEVATED. VERBALLY RESPONSIVE.ABLE TO MAKE NEEDS KNOWN. PT ON ROOM AIR TOLERATING WELL. NO COMPLAINTS OF PAIN OR DISCOMFORT. PT HAS RIGHT AC #20 GAUGE IV LINE INTACT, PATENT AND FLUSHING WELL. ALL SAFETY PRECAUTIONS IN PLACE. BED IS LOCKED AND IN LOWEST POSITION, 2 SIDE RAILS UP, CALL LIGHT WITHIN REACH. WILL CONTINUE TO MONITOR THROUGHOUT THE SHIFT.
[2022-04-29 20:00] VITALS: BP 107/62
[2022-04-29] MEDS ORDERED: SUMATRIPTAN SUCCINATE 100 MG TABLET PO PRN (23:00)
[2022-04-29] MEDS ORDERED: HOME MED MISCELLANEOUS XX SCH ×5 (23:00)
[2022-04-30 04:00] VITALS: BP 140/69
--- NOTE | 2022-04-30 06:08 | NUR ---
RN NOTE HOME MEDICATION TOVIAZ 4 MG SENT TO PHARMACY DOSE. PER PATIENT "TOOK 1 PILL YESTERDAY AFTERNOON AT BEDSIDE". LIBRARIAN HEAD MADE AWARE. MED RECON DONE.
--- NOTE | 2022-04-30 06:44 | NUR ---
MS RN CLOSING NOTE PT REMAINS IN BED SLEEPING BUT EASILY AROUSABLE TO TOUCH AND VOICE, ALERT AND ORIENTED X 3-4. VERBALLY RESPONSIVE. ABLE TO MAKE NEEDS KNOWN. PT ON ROOM AIR TOLERATING WELL. NO COMPLAINTS OF PAIN OR DISCOMFORT. PT HAS RIGHT AC #20 GAUGE IV LINE INTACT, PATENT AND FLUSHING WELL. ALL DUE MEDS GIVEN, KEPT DRY AND CLEAN, ALL SAFETY PRECAUTIONS IN PLACE. BED IS LOCKED AND IN LOWEST POSITION, 2 SIDE RAILS UP, CALL LIGHT WITHIN REACH. WILL ENDORSE TO AM SHIFT NURSE FOR CONTINUITY OF CARE.
[2022-04-30] MEDS ORDERED: NAPROXEN 250 MG TABLET PO PRN (07:00)
[2022-04-30] MEDS: PANTOPRAZOLE 40 MG TABLET.DR PO SCH (07:20)
--- NOTE | 2022-04-30 07:27 | NUR ---
MS RN OPENING NOTE RECEIVED PT IN BED AWAKE, ALERT AND ORIENTED X 3. HEAD OF BED ELEVATED. VERBALLY RESPONSIVE.ABLE TO MAKE NEEDS KNOWN. PT ON ROOM AIR TOLERATING WELL. NO COMPLAINTS OF PAIN OR DISCOMFORT. PT HAS RIGHT AC #20 GAUGE IV LINE INTACT, PATENT AND FLUSHING WELL. ALL SAFETY PRECAUTIONS IN PLACE. BED IS LOCKED AND IN LOWEST POSITION, 2 SIDE RAILS UP, CALL LIGHT WITHIN REACH.
[2022-04-30] MEDS ORDERED: LEVOTHYROXINE SODIUM 100 MCG TABLET PO SCH ×2 (07:30)
[2022-04-30] MEDS ORDERED: NAPROXEN 500 MG TABLET PO PRN (07:30)
[2022-04-30 08:00] VITALS: BP 112/69
[2022-04-30 08:27] VITALS: BP 112/69
[2022-04-30] MEDS ORDERED: IPRATROPIUM BROMIDE 0.06% 15 ML NASPR NS SCH (09:00)
[2022-04-30] MEDS ORDERED: ATENOLOL 25 MG TABLET PO SCH (09:00)
[2022-04-30] MEDS ORDERED: ATORVASTATIN 40 MG TABLET PO SCH ×2 (09:00→18:00)
[2022-04-30] MEDS ORDERED: OXYBUTYNIN CHLORIDE 5 MG TABLET PO SCH (09:00)
--- NOTE | 2022-04-30 09:35 | NUR ---
WOUND CARE CONSULT: PT PRESENTS WITH MULTIPLE AREAS OF DISCOLORATION, DRY ABRASIONS/SCABS, LEFT KNEE OPEN ABRASION AND LARGE AREA OF DISCOLORATION TO RT HIP AREA, ALL PRESENT ON ADMISSION. RECOMMENDATIONS MADE FOR SKIN PROTECTION. DISCUSSED WITH NURSING STAFF. RECOMMEND ORTHO FOLLOW UP FOR RT LOWER EXTREMITY SPLINT. MD IN AGREEMENT WITH PLAN OF CARE.
[2022-04-30] MEDS ORDERED: IMIPRAMINE 10 MG TABLET PO SCH (18:00)
[2022-04-30] MEDS ORDERED: IMIPRAMINE 25 MG TABLET PO SCH (18:00)
[2022-05-01] MEDS ORDERED: LEVOTHYROXINE SODIUM 100 MCG TABLET PO SCH (07:30)
== END 2022-04-30 16:33 | DRG 563 ==
LOC: ER 15:51 → TELE1 23:25 → MEDSG1 23:35
PROVIDERS: ADMIT Nurse Practitioner Acute Care; ATTEND Internal Medicine
DX: S92.334A Nondisplaced fracture of third metatarsal bone, right foot, initial encounter for closed fracture (principal); E87.6 Hypokalemia; I34.1 Nonrheumatic mitral (valve) prolapse; Z20.822 Contact with and (suspected) exposure to COVID-19; R29.6 Repeated falls; I10 Essential (primary) hypertension; Z88.5 Allergy status to narcotic agent; Z88.8 Allergy status to other drugs, medicaments and biological substances; Z88.4 Allergy status to anesthetic agent; Z91.040 Latex allergy status; Z79.51 Long term (current) use of inhaled steroids; Z79.899 Other long term (current) drug therapy; R26.9 Unspecified abnormalities of gait and mobility; Y92.9 Unspecified place or not applicable; W18.30XA Fall on same level, unspecified, initial encounter; Z91.81 History of falling; Z90.710 Acquired absence of both cervix and uterus; Z90.49 Acquired absence of other specified parts of digestive tract; E03.9 Hypothyroidism, unspecified; E78.5 Hyperlipidemia, unspecified; M21.942 Unspecified acquired deformity of hand, left hand; Z79.890 Hormone replacement therapy
CPT/HCPCS: 36415; 73610-TC; 73630-TC; 80048-TC; 80053-TC; 83735-TC; 84100-TC; 84443-TC; 84484-TC; 85025-TC; 87081-TC; 97110-TC; 97112-TC; 97530-TC; C9803; G0378; J7030

== ENCOUNTER 2022-05-20 16:45 | Inpatient (IN) | payer MEDICARE, OTHER ==
[~2022-05-20] VITALS: Ht 152.4 cm; Wt 50.8 kg
[~2022-05-20 16:45] MED LIST changes: -ESTR1TAB28 PO; -LUBI24CA5 PO; +OLOP2.5D12 EACHEYE; -ONDA-97 PO; -RANI150T8 PO
--- NOTE | 2022-05-20 17:00 | NUR ---
[id number] HOME, FOUND BY CAREGIVER IN THE BATHROOM FLOOR. NO OBVIOUS TRAUMA PER REPORT, C/O WEAKNESS X 1 WEEK. PLACED ON BED, AAOX4, BREATHING EVEN AND UNLABORED.
--- NOTE | 2022-05-20 17:15 | NUR ---
ELECTRO WINNING OPERATOR AT BEDSIDE
[2022-05-20 17:50] LABS: BASOPHILS % (AUTO) 0.5 % (0.0-2.0); EOSINOPHILS % (AUTO) 0.9 % (0.0-6.0); HEMATOCRIT 37 % (33-45); HEMOGLOBIN 11.8 g/dL (11.5-14.8); LYMPHOCYTES # (AUTO) 1.7 K/uL (0.8-4.8); LYMPHOCYTES % (AUTO) 21.7 % (20.0-44.0); MEAN CORPUSCULAR HGB CONC 32 g/dl (31.0-36.0); MEAN CORPUSCULAR VOLUME 94 fL (82-100); MONOCYTES # (AUTO) 0.8 K/uL (0.1-1.30); MONOCYTES % (AUTO) 10.3 % (2.0-12.0); NEUTROPHILS # (AUTO) 5.2 K/uL (1.8-8.9); NEUTROPHILS % (AUTO) 66.6 % (43.0-81.0); PLATELET COUNT (AUTO) 236 K/uL (150-450); RED BLOOD CELL COUNT(AUTO) 3.96 MIL/uL (4.0-5.2); WHITE BLOOD COUNT (AUTO) 7.8 K/uL (4.3-11.0)
[2022-05-20 18:00] LABS: CALCIUM, SERUM 8.8 mg/dL (8.5-10.1); CARBON DIOXIDE 31 mmol/L (21-32); CHLORIDE 117 mmol/L (98-107); GLUCOSE 89 mg/dL (74-106); POTASSIUM 3.6 mmol/L (3.5-5.1); SODIUM SERUM 143 mmol/L (136-145); UREA NITROGEN, BLOOD 19 mg/dL (7-18)
--- NOTE | 2022-05-20 18:05 | NUR ---
PATIENT TAKEN TO CT VIA DOC
[2022-05-20 18:07] LABS: ALANINE AMINOTRANSFERASE 55 U/L (12-78); ALBUMIN 3.2 g/dL (3.4-5.0); ALKALINE PHOSPHATASE 98 U/L (46-116); ASPARTATE AMINOTRANSFERASE 32 U/L (15-37); BILIRUBIN,DIRECT 0.1 mg/dL (0.0-0.2); BILIRUBIN,TOTAL 0.5 mg/dL (0.2-1.0); TOTAL PROTEIN, SERUM 7.4 g/dL (6.4-8.2)
--- NOTE | 2022-05-20 19:47 | NUR ---
SWABFOR COVID19 SENT TO LAB
--- NOTE | 2022-05-20 21:00 | NUR ---
REPORT GIVEN TO RAQUEL ROMO ROOM 306-2 FOR AN
[2022-05-20] MEDS ORDERED: MAG HYDROX/AL HYDROX/SIMETH 30 ML UDC PO PRN (21:30)
[2022-05-20] MEDS ORDERED: SUMATRIPTAN SUCCINATE 100 MG TABLET PO PRN (21:30)
[2022-05-20] MEDS ORDERED: NAPROXEN 500 MG TABLET PO PRN (21:30)
[2022-05-20] MEDS ORDERED: MAGNESIUM HYDROXIDE 30 ML UDC PO PRN (21:30)
[2022-05-20] MEDS ORDERED: Z GUARD REMEDY 4 OZ OINT TP PRN (21:30)
[2022-05-20] MEDS ORDERED: ONDANSETRON HCL/PF 4 MG/2 ML VIAL IVP PRN (21:30)
[2022-05-20] MEDS ORDERED: ZOLPIDEM TARTRATE 5 MG TABLET PO PRN (21:30)
[2022-05-20] MEDS ORDERED: ACETAMINOPHEN 325 MG TABLET PO PRN (21:30)
--- NOTE | 2022-05-20 22:30 | NUR ---
MS KNOBBER NOTE PT TRANSPORTED VIA GURNEY TO [facility] AT THIS TIME. PT ADMITTED TO [place] UNIT FROM ER UNDER FOOD SALES CLERK BHAVNA FOR ADMITTING DX FAILURE TO THRIVE AND WEAKNESS. A/O X4 AND ABLE TO MAKE NEEDS KNOWN. PT IS STABLE ON ROOM AIR. NO SOB OR S/S OF RESPIRATORY DISTRESS. BREATHING EVEN AND UNLABORED. NO COMPLAINTS OF PAIN OR DISCOMFORT AT THIS TIME. IV ACCESS RAC 18G, INTACT AND PATENT. WITH L KNEE ABRASION AND R ELBOW ABRASION. PT ORIENTED TO UNIT, STAFF, AND ROOM. PT BELONGINGS ACCOUNTED FOR AND BELONGINGS LIST SIGNED. SAFETY PRECAUTIONS IN PLACE. BED IN LOWEST LOCKED POSITION, HOB ELEVATED, SIDE RAILS UP X3, AND CALL LIGHT AND TABLE WITHIN REACH. ALL NEEDS MET AT THIS TIME.
[2022-05-20 22:56] VITALS: BP 137/85
[2022-05-21 06:26] LABS: BASOPHILS # (AUTO) 0.1 K/uL (0.0-0.2); BASOPHILS % (AUTO) 0.9 % (0.0-2.0); EOSINOPHILS % (AUTO) 1.6 % (0.0-6.0); HEMATOCRIT 38 % (33-45); HEMOGLOBIN 11.9 g/dL (11.5-14.8); MEAN CORPUSCULAR HGB CONC 31 g/dl (31.0-36.0); MEAN CORPUSCULAR VOLUME 98 fL (82-100); MONOCYTES # (AUTO) 0.7 K/uL (0.1-1.30); MONOCYTES % (AUTO) 10.8 % (2.0-12.0); NEUTROPHILS # (AUTO) 3.3 K/uL (1.8-8.9); NEUTROPHILS % (AUTO) 53.7 % (43.0-81.0); PLATELET COUNT (AUTO) 206 K/uL (150-450); RED BLOOD CELL COUNT(AUTO) 3.89 MIL/uL (4.0-5.2); WHITE BLOOD COUNT (AUTO) 6.2 K/uL (4.3-11.0)
[2022-05-21 06:27] LABS: CALCIUM, SERUM 8.4 mg/dL (8.5-10.1); CARBON DIOXIDE 25 mmol/L (21-32); CHLORIDE 108 mmol/L (98-107); CREATININE 0.9 mg/dL (0.6-1.3); GLUCOSE 112 mg/dL (74-106); MAGNESIUM 2.1 mg/dL (1.8-2.4); PHOSPHORUS 3.4 mg/dL (2.5-4.9); POTASSIUM 3.7 mmol/L (3.5-5.1); SODIUM SERUM 142 mmol/L (136-145); UREA NITROGEN, BLOOD 18 mg/dL (7-18)
[2022-05-21 06:59] LABS: CHOLESTEROL 177 mg/dL (<200); HDL CHOLESTEROL 61 mg/dL (40-60); LDL 89 mg/dL (0-99); T4 (THYROXINE) 6.4 ug/dL (4.7-13.3); THYROID STIMULATING HORMONE 5.564 uIU/mL (0.358-3.74); TRIGLYCERIDES 148 mg/dL (30-150)
[2022-05-21 07:00] VITALS: BP 122/72
--- NOTE | 2022-05-21 07:00 | NUR ---
MS RN CLOSING NOTE PT AWAKE IN BED. A/O X4 AND ABLE TO MAKE NEEDS KNOWN. PT IS STABLE ON ROOM AIR. NO SOB OR S/S OF RESPIRATORY DISTRESS. BREATHING EVEN AND UNLABORED. NO COMPLAINTS OF PAIN OR DISCOMFORT AT THIS TIME. IV ACCESS RAC 18G, INTACT AND PATENT. KEPT CLEAN AND DRY. SAFETY PRECAUTIONS IN PLACE AT ALL TIMES. BED IN LOWEST LOCKED POSITION, HOB ELEVATED, SIDE RAILS UP X3, AND CALL LIGHT AND TABLE WITHIN REACH. ALL NEEDS MET AT THIS TIME AND WILL ENDORSE TO ONCOMING NURSE FOR AN.
--- NOTE | 2022-05-21 07:10 | NUR ---
MS RN OPENING NOTES: RECEIVED PATIENT IN BED AWAKE, ALERT AND ORIENTED X 4 AND ABLE TO MAKE NEEDS KNOWN. NO SOB OR CARDIAC DISTRESS NOTED ON ROOM AIR, TOLERATING WELL.IV ACCESS ON RAC GAUGE 18 PATENT,INTACT AND SL. SAFETY MEASURES MAINTAINED: BED LOCKED AND IN LOWEST POSITION, SIDE RAILS UP X 2. CALL LIGHT AND BED SIDE TABLE IN EASY REACH. WILL MONITOR PT ACCORDINGLY.
[2022-05-21] MEDS: LEVOTHYROXINE SODIUM 100 MCG TABLET PO SCH (07:21)
[2022-05-21] MEDS: ATENOLOL 25 MG TABLET PO SCH (08:29)
[2022-05-21] MEDS: OXYBUTYNIN CHLORIDE 5 MG TABLET PO SCH ×2 (08:29→17:07)
[2022-05-21] MEDS ORDERED: Medication Not On Formulary EA ([Myrbetriq] 50 MG) PO SCH (09:00)
[2022-05-21] MEDS: ENSURE ENLIVE 237 ML LIQUID (VANILLA) PO SCH ×2 (15:05→17:07)
[2022-05-21] MEDS ORDERED: IPRATROPIUM BROMIDE 0.03 % 30 ML NASPR NS SCH (17:00)
[2022-05-21 17:06] LABS: BILIRUBIN,URINE NEGATIVE (NEGATIVE); COLOR,URINE YELLOW (YELLOW); LEUKOCYTE ESTERASE ,URINE NEGATIVE (NEGATIVE); NITRITE, URINE NEGATIVE (NEGATIVE); PROTEIN,URINE NEGATIVE (NEGATIVE); UGLUCOSE NEGATIVE (NEGATIVE); UROBILINOGEN,URINE 0.2 EU/dL (0.2)
[2022-05-21] MEDS ORDERED: IMIPRAMINE 25 MG TABLET PO SCH (18:00)
[2022-05-21] MEDS ORDERED: ATORVASTATIN 40 MG TABLET PO SCH (18:00)
--- NOTE | 2022-05-21 18:00 | NUR ---
RN NOTES: PT ASKED FOR HER ASPIRIN LOW DOSE ITS NOT IN MED RECON, INFORMED DR GOLDEN IF I CAN PUT AN ORDER SHE STATED OKAY. BUT PT HAS A CROSS ALLERGY ON MELOXICAM AND CELECOXIB, PENDING FOR RESPONSE.
--- NOTE | 2022-05-21 18:46 | NUR ---
MS RN CLOSING NOTES: PATIENT IN BED AWAKE, ALERT AND ORIENTED X 3-4 WITH EPISODES OF FORGETFULNESS. NO SOB OR CARDIAC DISTRESS NOTED, ON ROOM AIR AND TOLERATING WELL. IV ACCESS ON RAC GAUGE 18, PATENT,INTACT AND SALINE LOCKED. SAFETY MEASURES MAINTAINED: BED LOCKED AND IN LOWEST POSITION, SIDE RAILS UP X 2. CALL LIGHT AND BED SIDE TABLE IN EASY REACH FOR HELP. WILL MONITOR ACCORDINGLY. ENDORSED TO SAMPLE SELECTOR NURSE FOR CONTINUITY OF CARE.
--- NOTE | 2022-05-21 19:40 | NUR ---
MS RN OPENING NOTES: RECEIVED PATIENT IN BED AWAKE, ALERT AND ORIENTED X 4 AND ABLE TO MAKE NEEDS KNOWN. TOLERATING WELL ON RM AIR,NO SIGN SOB/DISTRESS NOTED,IV ACCESS ON RAC GAUGE 18 PATENT,INTACT AND SL. SAFETY MEASURES MAINTAINED: BED LOCKED AND IN LOWEST POSITION, SIDE RAILS UP X 2. CALL LIGHT AND BED SIDE TABLE IN EASY REACH. WILL CONTINUE TO MONITOR.
[2022-05-21 20:44] VITALS: BP 104/56
--- NOTE | 2022-05-22 06:12 | NUR ---
MS RN CLOSING NOTE; PATIENT IN BED SLEEPING BUT EASY TO AROUSED,ALERT AND ORIENTED X3 AND ABLE TO MAKE NEEDS KNOWN. TOLERATING WELL ON RM AIR,NO SIGN SOB/DISTRESS NOTED,DUE MEDS GIVEN ORDER,ALL NEEDS ATTENDED,IV ACCESS ON RAC GAUGE 18 PATENT,INTACT AND SL. SAFETY MEASURES MAINTAINED: BED LOCKED AND IN LOWEST POSITION, SIDE RAILS UP X 2. CALL LIGHT AND BED SIDE TABLE IN EASY REACH. WILL ENDORSED TO NEXT SHIFT.
[2022-05-22 07:00] VITALS: BP 126/70
--- NOTE | 2022-05-22 07:00 | NUR ---
MS RN OPENING NOTES: RECEIVED PATIENT IN BED AWAKE, ALERT AND ORIENTED X 3 AND ABLE TO MAKE NEEDS KNOWN. NO SOB OR CARDIAC DISTRESS NOTED ON ROOM AIR, TOLERATING WELL.IV ACCESS ON RAC GAUGE 18 PATENT,INTACT AND SL. SAFETY MEASURES MAINTAINED: BED LOCKED AND IN LOWEST POSITION, SIDE RAILS UP X 2. CALL LIGHT AND BED SIDE TABLE IN EASY REACH. WILL MONITOR PT ACCORDINGLY.
[2022-05-22] MEDS: LEVOTHYROXINE SODIUM 100 MCG TABLET PO SCH (07:17)
[2022-05-22 08:45] VITALS: BP 125/70
[2022-05-22] MEDS: ATENOLOL 25 MG TABLET PO SCH (08:45)
[2022-05-22] MEDS: OXYBUTYNIN CHLORIDE 5 MG TABLET PO SCH (08:45)
[2022-05-22] MEDS: ENSURE ENLIVE 237 ML LIQUID (VANILLA) PO SCH (08:46)
[2022-05-22] MEDS ORDERED: OLOPATADINE HCL 0.1% OPHTH BOTTLE EACHEYE SCH (09:00)
--- NOTE | 2022-05-22 09:14 | NUR ---
WOUND CARE CONSULT: PT PRESENTS WITH SLIGHT REDNESS TO LEFT SHOULDER WHICH SHE STATES IS ITCHY AND IT "COMES AND GOES" WELL LEFT KNEE DRY ABRASIONS, PRESENT ON ADMISSION. DEFER TO PMD FOR LEFT SHOULDER ITCHING/SLIGHT REDNESS. DISCUSSED SKIN PROTECTION WITH NURSING STAFF. MD IN AGREEMENT WITH PLAN OF CARE.
--- NOTE | 2022-05-22 10:30 | NUR ---
Production Control Analyst Consult SW received a consult request for pt. who lives alone and expressed concern for her cats. Pt. is a 72 year old white female who was admitted for failure to thrive. SW met with pt. at bedside. Pt is alert and oriented x 4, appeared neat, maintained normal eye contact, and has a flat affect and congruent mood. Pt confirmed demographic information ([address] [facility] [address] [place] [id number], ), and provided contact information for her son Bassem Rodriguez ( ).Pt. lives alone and had a caregiver but pt stated that her caregiver had quit the day prior. Pt stated that she was concerned for her kittens that were home alone while she was in the hospital but had been informed that her son and her neighbor (Justus) had been helping her feed and put out water for the kittens. Pt. stated that she is ambulatory and independent with her ADL's. Pt then disclosed that she had not taken her thyroid medication for 4 days and had felt lightheaded and "laid on the floor" which is how her caregiver had found her. SW inquired if pt. would consider a long-term facility or an assisted living facility in which pt. declined stating that she wishes to stay home and requested caregiver information. Pt expressed feeling depressed because of the loss of her mother earlier this year. SW validated pt. and provided emotional support. Pt. is disabled. Pt. did not report a hx of substance use. Pt. did not report a hx of psychiatric dx or mental illness. Pt. denied having visual and auditory hallucinations. NITHIN assessed for suicidal and homicidal ideation in which pt. denied plan, means, or intent. Pt. stated that she was in the process of getting life alert. DC plan: When asked about pt.'s plan after discharge, pt. stated that she was going to return home ([address] [facility] [address] [place] [id number]). NITHIN offered pt. senior resources, caregiver brochures for [employer] ([phone]) and [employer] [place] [facility] ( ) in which the pt. accepted them. Pt. stated that she will get the support of her son to obtain a new caregiver. SW will make an APS report for self-neglect due to frequent falls at home. ABUSE PREVENTION: ELDER ABUSE HOTLINE (20/01) ADULT PROTECTIVE SERVICES HOTLINE LONG-TERM CARE [facility] Region AREA ON AGING (HOTLINE) ADULT DAY HEALTH CARE CARE CENTERS: Private pay or Medi-[facility] funded adult day care [facility] Day [facility] Care [facility] , [facility] , [facility] , [facility] Adult Day Health Care , [facility] Adult [facility] Care , [facility] , [place] [facility] , [facility] , [place] ALZHEIMERS DISEASE/DEMENTIA: Alzheimers Association Helpline [facility] www.alz.org/[facility] Department of Aging www.lacity.org Family Caregiver [place] www.caregiver.org [place] Caregiver Resources Center/Family Support www.[facility].org CANCER RESOURCES: [place] Cancer Society www.cancer.org Cancer Support Community www.CancerSupportVvsb.org: CancerCare www.cancercare.org [facility] Cancer Support Center www.eegoes.org COMMUNITY HEALTH ASSOCIATIONS: AARP www.aarp.org ALS Association (ask for Mechelle) www.als.org [place] Diabetes Association www.diabetes.org [place] Heart Association www.heart.org [place] Lung Association www.lungusa.org [place] Parkinson Disease Association www.apdaparkinson.org Libyan Lakin , www.redcross.org Arthritis Foundation www.arthritis.org Crohns & Colitis Foundation of [place] www.ccfa.org/chapters/[place] National Multiple Sclerosis Society www.nationalmssociety.org Myasthenia Gravis Foundation www.myasthenia-ca.org National Stroke Association www.stroke.org CONSERVATORSHIP & GUARDIANSHIP: AARP Jodi Mckeon Legal Services Center for Health Care Rights [place] Information and Referral Professor Of Violin [facility]: [facility] Referral Service [facility] Legal Services Office of the Public Guardian [place] EYESIGHT DISORDER RESOURCES: [place] Macular Degeneration Foundation [facility] www.brailleinstitute.org GRIEF AND BEREAVEMENT RESOURCES: The [place] , [facility] THE HOPE Connection , [facility]ment Center , [place] HEARING DISORDER RESOURCES: [place] Telephone Access Program Deaf and Disabled Telecommunications Program www.ddtp.cpuc.ca.gov HearRx Hearing Centers ([place]) Better Hearing Systems , [place] GLAD ([facility] Agency on Deafness) V/ TTY; Presales Consultant , Timbo [facility] Hearing Foundation -low income hearing aid assistance www.[facility] hospitalringfoundation.org [place] Hearing Care , Missy HELP AT HOME CAREGIVER SUPPORT: In Home Support Services (Must have Medi-Cullen to be eligible) *Ask for a list of agencies that provide services to assist with care in the home. Local Senior Centers also have listings of care providers. HOME SAFETY MODIFICATIONS AND EQUIPMENT: Senior centers have additional referrals. [place] Grid Mobile and Buy buy tea Dept. Handyworker Program (low income) or Visit http://hcidla.st. anthony hospitalJambotech.org/dfp-sdmgar-bl for more information National Seating and Mobility and/or ; Forever Active www.foreverDivas Diamondmed.Relevant e-solution Stay Home Safe www.Stayhomesafe.com LIFE ALERT RESPONSE SYSTEM: Mindflash Lifeline Services 845-707-8196 www. LifexChange Automotive.Relevant e-solution Life Alert 280-421-8277 www.lifePodclass.Relevant e-solution Life Station 711-566-6002 www.tok tok tokation.Relevant e-solution Safe Return 057-944-7778 www.alz.or/safereturn Cell Phones for Seniors www.RedZone Robotics MEALS AND FOOD PROGRAMS: [place] Meals on Wheels 875-602-1965 [place] Meals on Wheels [phone] [facility] [phone] [place] to the Homebound [phone] [place] to the Homebound [phone] [facility] to the Homebound [phone] [facility] to the Homebound [phone] Juan [place] [phone] [facility] 504-232-6261 ONE Generation [phone] [facility] [phone] Donny Astria [facility] [phone] Meals on Wheels [phone] For all ages: $6.85/ meal w side. Delivered M-F from 10 am-1pm. Application and payment is done over the phone. Frozen meals available for weekends. Emergency Food [facility] [phone] Orthodoxy Production Control Analyst [phone] [facility] [phone] [facility] Outreach- Brown bag lunches [phone] [facility] [phone] MEAL/GROCERY DELIVERY PROGRAMS: [facility] Gourmet Meals [phone]- [facility] [phone]- [facility] Magic Kitchen [phone] Moms Meals [phone] (ask [place] for Discount Select grocery stores may provide delivery. MEDICAL INSURANCE SUPPORT SERVICES: Center for Health Care Rights [phone] Health Insurance Counseling/Advocacy Programs (HICAP)-Must have Medicare. Offers counseling for Medi-[place] eligibility 615-899-7544 Department of Public Production Control Analyst [phone] www.lds hospital.ca.gov Medicare 195-392-1033 www.socialsecurity.org Social Security [phone] SENIOR ACTIVITY PROGRAMS: *Contact a local senior center, adult school, recreation facility or community college for education, fitness, recreation, and social programs. Aquatic Therapy and Adapted Exercise programs through [facility] [phone] Encore at [facility] [phone] www.[facility]/encore H2U- Senior Friends [phone] [place] Senior Programs 657-277-6794 www.oasisnet.org Suddenly 65 www.hcvyaxwh44.com SENIOR CENTERS: [facility] [phone] [facility] Center[facility] [phone] [facility] [phone] [facility] [place] [phone] [facility] [phone] [facility] [phone] [facility] [phone] [facility] [phone] One [facility] [phone] [facility] [phone] [facility] [phone] [facility] [phone] [facility] [phone] TRANSPORTATION: Local [facility] may have applications for transportation programs and additional resources. ACCESS Services [phone] Transportation for seniors and disabled persons 7 days a week requiring 254 hr. advance reservation. Must apply and register for program liane eligible. [place] [phone] or [phone] Transportation for seniors and persons with ADA card/metro disabled card in the [facility]. M-F only. Must register for services. ONE GENERATION [phone] Serves 65 years + in conjunction with Evermind program. Must be registered with both programs. A to B Transport [phone] Provides wheelchair/gurney van service. Adult Medical Transport [phone] Accepts [facility] with prior authorization. Care Van [phone] Provides wheelchair Transport. [facility] Wide Transportation [phone] Provides gurney service Gentle Care [phone] Gurney Transport. [facility] Town Transportation [phone] wheelchair & gurney transport [facility] Transportation [phone] wheelchair & gurney transport [place] Non-Emergency Transport [phone] wheelchair & gurney transport [facility] Living [place] [phone] Short Term Transportation primarily for adults with disabilities on social security income. Nominal fee may apply and a reservation is required. [employer] [phone] or [phone] [employer] [phone] [place] [address] Services -[phone] For additional programs & services VETERANS RESOURCES: Submissions for Aid and Attendance should be done directly to [facility] office locatd at : [address] [facility] [phone] National Caregiver Support Line [phone] [place] Vet Veterans Services Field Office [phone] [place] Department of [place] Affairs [phone] Pension Information [phone]
[2022-05-22] MEDS ORDERED: FESO4TAB PO (11:20)
[2022-05-22] MEDS ORDERED: ROSU40TA23 PO (11:20)
[2022-05-22] MEDS ORDERED: ATEN25TA PO (11:20)
[2022-05-22] MEDS ORDERED: MYRBETRIQ PO (11:20)
[2022-05-22] MEDS ORDERED: LEVO75TA7 PO (11:20)
--- NOTE | 2022-05-22 11:40 | NUR ---
APS Note SW made an APS report through [facility] for self neglect. The reference number is [id number].
--- NOTE | 2022-05-22 14:30 | NUR ---
REGISTERED NURSE FETAL NOTES: PATIENT DC HOME WITH HH, PT ALERT AND ORIENTED X 3 AND ABLE TO MAKE NEEDS KNOWN. NO SOB OR CARDIAC DISTRESS NOTED. DISCHARGE INSTRUCTIONS GIVEN TO PT AND VERBALIZED UNDERSTANDING. BELONGINGS LIST SIGNED. SKIN ISSUES NOTED, PHOTOS TAKEN AND FILED TO PT'S CHART. REMOVED IV ACCESS AND IDENTIFICATION BAND. PT LEFT THE UNIT STABLE, [place] WHEELED TH PT IN THE FRONT LOBBY. PT PICKED UP BY HER SON.
== END 2022-05-22 14:30 | disposition home health service (06) | DRG 641 ==
LOC: ER 16:48 → TELE 20:54 → MED 22:50
PROVIDERS: ADMIT Nurse Practitioner Acute Care; ATTEND Nurse Practitioner Acute Care
DX: R62.7 Adult failure to thrive (principal); I10 Essential (primary) hypertension; E03.9 Hypothyroidism, unspecified; I34.1 Nonrheumatic mitral (valve) prolapse; R29.6 Repeated falls; Z79.899 Other long term (current) drug therapy; Z88.5 Allergy status to narcotic agent; Z88.4 Allergy status to anesthetic agent; Z88.1 Allergy status to other antibiotic agents; Z91.040 Latex allergy status; Z88.8 Allergy status to other drugs, medicaments and biological substances; Z79.51 Long term (current) use of inhaled steroids; Z90.49 Acquired absence of other specified parts of digestive tract; Z91.14 Patient's other noncompliance with medication regimen; R26.89 Other abnormalities of gait and mobility
CPT/HCPCS: 36415; 70450-TC; 71045-TC; 80048-TC; 80061-TC; 80076-TC; 83735-TC; 84100-TC; 84436-TC; 84443-TC; 84484-TC; 85025-TC; 87081-TC; 97112-TC; 97116-TC; G0378